=== PATIENT | female | born 1955 ===

== ENCOUNTER 2023-06-23 22:37 | Emergency (ER) | payer MEDICARE, BC ==
[~2023-06-23] VITALS: Ht 157.5 cm; Wt 49.9 kg
--- NOTE | 2023-06-23 23:25 | NUR ---
Dr. Matias at bedside for MSE.
[2023-06-23] MEDS ORDERED: NEOMY/POLYMYX B/HC OTIC SOL 10 ML BOTTLE OT ONE (23:30)
[2023-06-23] MEDS ORDERED: KETOROLAC TROMETHAMINE 30 MG INJ IM ONE (23:30)
[2023-06-23] MEDS ORDERED: KETOROLAC TROMETHAMINE 30 MG INJ ONE (23:33)
[2023-06-23] MEDS ORDERED: NEOMY/POLYMYX B/HC OTIC SOL 10 ML BOTTLE ONE (23:33)
[2023-06-23] MEDS ORDERED: CIPR7.5D EACH EAR (23:47)
--- NOTE | 2023-06-23 23:49 | NUR ---
Patient discharged to home in stable condition. Written and verbal after care instructions given. Patient verbalizes understanding of instructions. Stressed follow up or return to ER for worsening s/s.
[2023-06-23 23:50] VITALS: BP 156/118; O2SAT 96
== END 2023-06-23 23:50 | disposition home or self-care (01) ==
LOC: ER 22:37
DX: H60.92 Unspecified otitis externa, left ear (principal); E78.5 Hyperlipidemia, unspecified; Z79.2 Long term (current) use of antibiotics
CPT/HCPCS: 99283; 96372; J1885; A4663; J3590